=== PATIENT | male | born 1985 | race Native Hawaiian/Other Pacific Islander ===

== ENCOUNTER 2017-01-26 06:22 | Day surgery (SDC) | payer OTHER ==
[2017-01-26] MEDS ORDERED: CELECOXIB 100 MG CAPSULE PO ONE (06:31)
[2017-01-26] MEDS ORDERED: ACETAMINOPHEN 1,000 MG/100 ML 100 ML IV ONE (06:31)
[2017-01-26] MEDS ORDERED: ceFAZolin 2 GM/50 ML 50 ML IV ONE (06:31)
[2017-01-26] MEDS ORDERED: LACTATED RINGERS 1,000 ML IV ONE ×2 (06:40→10:00)
[2017-01-26] MEDS ORDERED: BUPIVACAINE 0.5% PF 10 ML VIAL IM ONE ×2 (07:28)
[2017-01-26] MEDS ORDERED: MORPHINE PF 5 MG/10 ML AMP EPI ONE (07:28)
[2017-01-26] MEDS ORDERED: ROPIVACAINE 0.2% PF 10 ML VIAL EPI ONE (07:28)
[2017-01-26] MEDS ORDERED: LIDOCAINE-MPF 2% 5 ML VIAL IM ONE (08:30)
[2017-01-26] MEDS ORDERED: PROPOFOL 200 MG/20 ML VIAL IVP ONE (08:30)
[2017-01-26] MEDS ORDERED: ONDANSETRON 4 MG/2 ML VIAL IVP ONE (08:30)
[2017-01-26] MEDS ORDERED: fentaNYL 100 MCG/2 ML VIAL IVP ONE (08:30)
[2017-01-26] MEDS ORDERED: MIDAZOLAM 2 MG/2 ML VIAL IVP ONE (08:30)
[2017-01-26] MEDS: fentaNYL 100 MCG/2 ML VIAL ONE ×2 (09:25→09:35)
[2017-01-26] MEDS ORDERED: oxyCOD/ACETAMIN 5 MG/325 MG TABLET PO ONE (10:15)
== END 2017-01-26 06:23 | disposition home or self-care (01) ==
PROC: 0SBC4ZZ Excision of Right Knee Joint, Percutaneous Endoscopic Approach (ICD-10-PCS; principal; 2017-01-26 07:30)
DX: M25.861 Other specified joint disorders, right knee (principal); F17.200 Nicotine dependence, unspecified, uncomplicated
CPT/HCPCS: 29875; A9270; J0131; J0690; J7120

== ENCOUNTER 2017-11-06 22:54 | Emergency (ER) | payer OTHER ==
[2017-11-06 23:02] VITALS: BP 182/121
[2017-11-06] MEDS ORDERED: ERYTHROMYCIN OPHTH OINT 1 GM TUBE RIGHTEYE STA (23:05)
--- NOTE | 2017-11-06 23:29 | ED Physician Documentation ---
PD HPI OPHTHO - Stated complaint Stated Complaint: EYELID SWOLLEN - Chief complaint Chief Complaint: Heent - History obtained from History obtained from: Patient - History of Present Illness Timing - onset: How many weeks ago (1) Timing - details: Gradual onset, Still present Location: Right Quality / character: Throbbing Associated symptoms: Redness, Swelling. No: Double vision, Decreased vision, Loss of vision Similar symptoms before: Has not had sx before Recently seen: Not recently seen - Additional information Additional information: Patient is a 32 year old male with no significant past medical history who is presenting to the emergency department for right eye pain. Patient states that it has been going on for a week but his family member was coming in so he came in as well. Review of Systems Constitutional: denies: Fever, Chills Eyes: reports: Irritation. denies: Decreased vision, Photophobia Ears: denies: Ear pain, Drainage/discharge Nose: reports: Reviewed and negative Throat: reports: Reviewed and negative Cardiac: reports: Reviewed and negative Respiratory: reports: Reviewed and negative GI: reports: Reviewed and negative : reports: Reviewed and negative Skin: reports: Reviewed and negative Musculoskeletal: reports: Reviewed and negative Neurologic: denies: Headache, Head injury Immunocompromised: denies: Immunocompromised PD PAST MEDICAL HISTORY - Past Medical History Past Medical History: Yes Cardiovascular: None Respiratory: None Endocrine/Autoimmune: None GI: None : None HEENT: Chronic vision loss Psych: None Musculoskeletal: Other Derm: None - Past Surgical History Ortho: Arthroscopic surgery - Present Medications Home Medications: Ambulatory Orders Medication Instructions Recorded Confirmed No Known Home Medications [No 01/23/17 11/06/17 Known Home Medications] - Allergies Allergies/Adverse Reactions: Allergies Allergy/AdvReac Type Severity Reaction Status Date / Time cortisone Allergy Hives Verified 11/06/17 23:02 - Social History Does the pt smoke?: Yes Smoking Status: Current every day smoker Does the pt drink ETOH?: Yes Does the pt have substance abuse?: No - Immunizations Immunizations are current?: Yes - POLST Patient has POLST: No PD ED PE NORMAL - Vitals Vital signs reviewed: Yes - General General: Alert and oriented X 3, No acute distress - HEENT HEENT: Atraumatic, PERRL, Moist mucous membranes - Neck Neck: Supple, no meningeal sign - Cardiac Cardiac: RRR - Respiratory Respiratory: No respiratory distress - Abdomen Abdomen: Soft - Derm Derm: Normal color - Extremities Extremities: No deformity - Neuro Neuro: Alert and oriented X 3, No motor deficit, No sensory deficit, Normal speech - Psych Psych: Normal mood PD ED PE EXPANDED - Eyes Eyes: Visual acuity - see nn, PERRL, Normal accommodation, EOMI, Eyelid swelling , Eyelid erythema (right eye, medial component). No: EOM palsy Results - Vitals Vitals: Vital Signs - 24 hr 11/06/17 22:59 Temperature 36.7 C Heart Rate 97 Respiratory 16 Rate Blood Pressure 182/121 H O2 Saturation 98 Oxygen O2 Source Room air PD MEDICAL DECISION MAKING - ED course Complexity details: reviewed old records, reviewed results, re-evaluated patient , considered differential, d/w patient ED course: Patient was seen and examined at bedside. Patient was well appearing. visual acuity was intact. Patient was treated with erythromycin drops. patient was given detailed discharge and follow up instructions. Patient required no further work up and was stable for discharge with outpatient follow up. Departure - Departure Disposition: 01 Home, Self Care Clinical Impression: Sty, external Condition: Good Instructions: ED [place] Follow-Up: ALISSA FLORES [Primary Care Provider] - Comments: You should apply warm compresses to your eye at least 4 times a day. You should continue to monitor it and follow up with your doctor if your symptoms persist.
== END 2017-11-06 23:40 | disposition home or self-care (01) ==
LOC: ED 22:54
DX: H00.023 Hordeolum internum right eye, unspecified eyelid (principal); F17.200 Nicotine dependence, unspecified, uncomplicated
CPT/HCPCS: 99283; J3490